=== PATIENT | male | born 1975 | race Caucasian/White ===

== ENCOUNTER 2019-01-07 21:12 | Emergency (ER) | payer BC ==
[2019-01-07] MEDS ORDERED: SODIUM CHLORIDE 0.9% 1000ML 1,000 ML ONE (21:23)
--- NOTE | 2019-01-07 21:35 | ED.PDOC ---
History of Present Illness - General Chief Complaint: Abdominal Pain Stated Complaint: Right sided abd pain Time Seen by Provider: 01/07/19 21:34 Information Source: patient Exam Limitations: no limitations - History of Present Illness Initial Comments: Jose Paulson 44 y/o male stated that he had sharp RLQ pain radiating to his right groin 3-4 hours ago which got worse .Did not eat since no appetite and had one episode of N/V.No diarrhea ,constipation or hematuria. Abdominal Pain Onset Location: RLQ Pain Radiation: groin Quality: severe, sharpness, steady Timing/Duration: 4-6 hours Improving Factors: nothing Worsening Factors: nothing Associated Symptoms: nausea/vomiting Review of Systems - Review of Systems Constitutional: States: no symptoms reported EENTM: States: no symptoms reported Respiratory: States: no symptoms reported Cardiology: States: no symptoms reported Gastrointestinal/Abdominal: States: see HPI Genitourinary: States: no symptoms reported All other Systems: Reviewed and Negative, No Change from Baseline Past Medical History (General) - Patient Medical History Hx Seizures: No Hx Asthma: No Hx Hypertension: No Hx Diabetes: No Surgical History: other - arm - Social History Hx Alcohol Use: No Hx Substance Use: No Hx Depression: No Feels Threatened In Home Enviroment: No Family Medical History - Family History Mother Hx Family Cancer: Yes - mother breast cancer Physical Exam - Physical Exam General Appearance: Alert, Anxious, No apparent distress Eyes, Ears, Nose, Throat Exam: normal ENT inspection, pharynx normal Neck: supple, normal inspection Respiratory: lungs clear, normal breath sounds, no respiratory distress Cardiovascular/Chest: normal peripheral pulses, regular rate, rhythm, no murmur Peripheral Pulses: No deficit Gastrointestinal/Abdominal: soft, tenderness - RLQ no peritoneal signs Male Genitalia: normal genitalia, no hernia Back Exam: no CVA tenderness, no vertebral tenderness Extremity: no pedal edema, no calf tenderness Neurologic: alert, oriented x 3 Skin Exam: normal color, warm/dry Progress - Progress Progress: 01/07/19 23:31 Vital Signs - 8 hr 01/07/19 01/07/19 01/07/19 21:33 21:34 22:13 Temperature 97.8 F Pulse Rate [ 66 66 50 L monitor] Respiratory 20 20 20 Rate Blood Pressure 114/81 119/79 [Left Arm] O2 Sat by Pulse 98 97 Oximetry 01/07/19 23:00 Temperature Pulse Rate [ 64 monitor] Respiratory 20 Rate Blood Pressure 119/79 [Left Arm] O2 Sat by Pulse 98 Oximetry - Results/Orders Results/Orders: 01/07/19 21:36 URINALYSIS Stat 01/07/19 22:50 levoFLOXacin 500MG IV [Levaquin 500MG IV] 500 mg Premix Bag 1 bag IVPB ONCE Laboratory Results - last 24 hr 01/07/19 01/07/19 21:36 22:04 WBC 14.8 H RBC 4.94 Hgb 14.8 Hct 43.2 MCV 87.5 MCH 29.9 MCHC 34.2 RDW 12.8 Plt Count 315 MPV 8.0 Absolute Neuts (auto) 11.70 H Absolute Lymphs (auto) 1.70 Absolute Monos (auto) 1.10 H Absolute Eos (auto) 0.10 Absolute Basos (auto) 0.10 Neutrophils % 79.0 H Lymphocytes % 11.5 L Monocytes % 7.7 Eosinophils % 0.8 L Basophils % 1.0 PT 9.7 INR 0.97 PTT (SP) 24.7 Sodium 137 Potassium 3.4 L Chloride 105 Carbon Dioxide 24 Anion Gap 11.4 L BUN 13 Creatinine 1.02 BUN/Creatinine Ratio 12.7 Random Glucose 138 H Serum Osmolality 276.1 Calcium 9.2 Magnesium 1.7 L Total Bilirubin 1.3 H Direct Bilirubin 0.2 Indirect Bilirubin 1.1 H AST 20 ALT 24 Alkaline Phosphatase 74 Creatine Kinase 106 CK-MB (CK-2) 1.3 CK-MB (CK-2) % Not Reportable Troponin I < 0.02 Serum Total Protein 7.3 Albumin 4.5 Lipase 25 Discuss all test vresults with patient - EKG/XRAY/CT CT Ordered: Yes - 3.8mm X 3.5mm Right UVJ calculus;w/2mm kidney stone right Departure - Departure Clinical Impression: Acute right flank pain, Hydronephrosis with ureteral calculus, Right nephrolithiasis, Ureteropelvic junction calculus Time of Disposition: 23:37 Disposition: Discharge to Home or Self Care Condition: Good Departure Forms: ED Discharge - Pt. Copy, Patient Portal Self Enrollment Instructions: Kidney Stones (DC), Renal Colic, Kidney Stones in Adults, How to Strain Your Urine Referrals: Jose Spangler MD [Primary Care Provider] - 1-2 Weeks Prescriptions: Acetamin W/Cod #3 Tab [Tylenol w/CODEINE #3] 1 ea PO TID PRN #10 tab PRN Reason: Pain levoFLOXacin [Levaquin] 500 mg PO DAILY 7 Days #7 tab Tamsulosin [Flomax] 0.4 mg PO QD #7 cap Home Medications: Ambulatory Orders Acetamin W/Cod #3 Tab [Tylenol w/CODEINE #3] 1 ea PO TID PRN #10 tab 01/07/19 Tamsulosin [Flomax] 0.4 mg PO QD #7 cap 01/07/19 levoFLOXacin [Levaquin] 500 mg PO DAILY 7 Days #7 tab 01/07/19 Additional Instructions: Need to drink extra fluids;Follow up with your primary Md for recheck as needed 09 Jan 2019;Return to ER as needed;May take Aleve 1-2 tabs po am/pm for pain as needed
[2019-01-07] MEDS ORDERED: LACTATED RINGERS 1,000 ML IVS ONE (21:36)
[2019-01-07] MEDS ORDERED: MORPHINE SULFATE INJ 10 MG/ML VIAL IV ONE ×2 (21:36→22:03)
[2019-01-07] MEDS ORDERED: PROCHLORPERAZINE INJ 10 MG/2 ML VIAL IV ONE (21:36)
[2019-01-07] MEDS ORDERED: KETOROLAC TROMETHAMINE INJ 30 MG/ML VIAL IV ONE (21:36)
[2019-01-07 21:37] VITALS: TEMP 97.8
--- NOTE | 2019-01-07 22:43 | CT ---
EXAM: Abdoment/Pelvis w/o Contrast CLINICAL INDICATION: Abdominal pain. COMPARISON: There is no previous study for comparison. TECHNIQUE: The CT scan was done using contiguous axial 2.5 mm noncontrast sections through the abdomen and pelvis. This exam was performed according to our departmental dose-optimization program, which includes automated exposure control, adjustment of the mA and/or kV according to patient size and/or use of iterative reconstruction technique. FINDINGS: The visualized lung bases are clear. The liver, gallbladder, left kidney, adrenal glands, spleen, and pancreas have a normal noncontrast CT appearance. There is moderate hydronephrosis of the right kidney with dilatation of the right ureter down to the distal right ureter just above the ureterovesical junction where there is a 3.8 x 3.5 mm stone. Also noted is a 2 mm nonobstructing stone in the right upper renal pole. The appendix is normal. There are no dilated loops of small bowel. There is no free air, free fluid, or abscess. The aorta is normal in caliber. IMPRESSION: 1. Obstructing stone in the distal right ureter with moderate right-sided hydronephrosis. 2. Additional tiny nonobstructing stone in the right kidney. Electronically signed by: Jose Danielle MD 01/07/2019 10:40 PM [employer]
[2019-01-07] MEDS ORDERED: TAMSULOSIN 0.4 MG CAP PO ONE (22:48)
[2019-01-07] MEDS ORDERED: levoFLOXacin 500MG IV 500 MG in PREMIX BAG 1 BAG IVPB ONE (22:50)
[2019-01-07] MEDS ORDERED: levoFLOXacin 500MG IV 100 ML IVPB ONE (22:52)
[2019-01-07 23:01] VITALS: BP 119/79
[2019-01-07 23:27] VITALS: O2SAT 98
[2019-01-07] MEDS ORDERED: HYDROCOD/APAP 10/325 (ER DISP) # 3 tablets PO ONE (23:38)
== END 2019-01-08 | disposition home or self-care (01) ==
LOC: ER 21:12
DX: N13.2 Hydronephrosis with renal and ureteral calculous obstruction (principal)
CPT/HCPCS: 36415; 74176; 80048; 80076; 82550; 82553; 83690; 84484; 85025; 85610; 85730; J0780; J1885; J1956; J2270; J7030; J7120